=== PATIENT | male | born 2005 | race Hispanic/Latino ===

== ENCOUNTER 2023-05-23 12:07 | Emergency (ER) | payer SELFPAY ==
[2023-05-23] MEDS ORDERED: dexAMETHasone 10 MG/ML VIAL ONE (12:51)
[2023-05-23] MEDS ORDERED: HYDROCODONE/APAP 5/325 MG TAB ONE (12:51)
[2023-05-23] MEDS ORDERED: PEN G BENZ LA 1.2MU/2ML SYRINGE IM ONE (12:52)
[2023-05-23] MEDS ORDERED: ONDANSETRON 4 MG (ODT) TAB ONE (12:52)
[2023-05-23] MEDS ORDERED: IBUPROFEN 200 MG TAB PO ONE (12:52)
--- NOTE | 2023-05-23 13:46 | ER ---
Nurse's Notes [facility] Name: Ruben Duarte Age: 17 yrs Sex: Male : 2005 Arrival Date: 05/23/2023 Time: 12:07 Bed 10 Private MD: Diagnosis: Fever, unspecified;Acute laryngopharyngitis;Acute upper respiratory infection, unspecified Presentation: 05/23 12:19 Chief complaint: Parent and/or Guardian states: sore throat onset yesterday and today cm10 got worse. Coronavirus screen: Client denies travel out of the [place] in the last 14 days. Ebola Screen: Patient denies travel to an Ebola-affected area in the 21 days before illness onset. No symptoms or risks identified at this time. Initial Sepsis Screen: Does the patient meet any 2 criteria? No. Patient's initial sepsis screen is negative. Does the patient have a suspected source of infection? No. Patient's initial sepsis screen is negative. Risk Assessment: Do you want to hurt yourself or someone else? Patient reports no desire to harm self or others. Onset of symptoms was May 23, 2023. 12:19 Method Of Arrival: Ambulatory cm10 12:19 Acuity: GERALD 3 cm10 Triage Assessment: 13:00 General: Appears in no apparent distress. Behavior is calm, cooperative. iw Historical: - Allergies: 12:21 No Known Allergies; cm10 - Home Meds: 12:21 None [Active]; cm10 - PMHx: 12:21 Asthma; cm10 - PSHx: 12:21 None; cm10 - Immunization history:: Adult Immunizations up to date. - Social history:: Smoking status: Patient denies any tobacco usage or history of. - Family history:: not pertinent. Screenin:08 [facility] ED Fall Risk Assessment (Adult) Score/Fall Risk Level 0 - 2 = Low Risk. Abuse iw screen: Denies threats or abuse. Denies injuries from another. Nutritional screening: No deficits noted. Tuberculosis screening: No symptoms or risk factors identified. Assessment: 13:00 General: Appears in no apparent distress. Behavior is calm, cooperative. Pain: iw Complains of pain in throat. Neuro: Level of Consciousness is awake, alert, obeys commands, Oriented to person, place, time, situation, Moves all extremities. Full function. Cardiovascular: Patient's skin is warm and dry. Respiratory: Airway is patent Respiratory effort is even, unlabored, Breath sounds are clear bilaterally. EENT: Throat is reddened bilaterally. Vital Signs: 12:19 BP 135 / 87; Pulse 117; Resp 18; Temp 100.3(O); Pulse Ox 98% ; Weight 59.2 kg; Pain cm10 5/10; 12:19 Pain Scale: Adult cm10 ED Course: 12:09 Patient arrived in ED. mg5 12:11 Uriah Bonilla MD is Attending Physician. cp3 12:21 Triage completed. cm10 12:21 Arm band placed on Patient placed in waiting room. cm10 12:24 Flu Sent. cm10 12:24 Strep Sent. cm10 12:37 Stephy Purcell, RN is Primary Nurse. iw 13:45 Abhijit Lowery MD is Referral Physician. cp3 Administered Medications: 12:53 Drug: Dexamethasone IM 10 mg Route: IM; Site: right ventrogluteal; mb9 13:30 Follow up: Response: No adverse reaction iw 12:53 Drug: HYDROcodone-acetaminophen PO 5 mg-325 mg 1 tabs Route: PO; mb9 13:30 Follow up: Response: No adverse reaction iw 12:53 Drug: Ibuprofen PO 600 mg Route: PO; mb9 13:30 Follow up: Response: No adverse reaction iw 12:53 Drug: Ondansetron PO 4 mg Route: PO; mb9 13:30 Follow up: Response: No adverse reaction iw 12:53 Drug: penicillin G Benzathine IM 1.2 million units Route: IM; Site: right ventrogluteal;mb9 13:30 Follow up: Response: No adverse reaction iw Outcome: 13:46 Discharge ordered by . cp3 14:08 Discharged to home ambulatory, with family. iw 14:08 Condition: good 14:08 Discharge instructions given to patient, family. 14:08 Instructed on discharge instructions, follow up and referral plans. medication usage, Demonstrated understanding of instructions, follow-up care, medications, Prescriptions given X 3. 14:09 Patient left the ED. mb9 Signatures: Uriah Bonilla MD MD cp3 Stephy Purcell, RN GRETTA iw Mita Caceres RN RN mb9 Bernadine Campbell RN RN 10 Rocha, Quin mg5
--- NOTE | 2023-05-23 13:46 | EDPHYS ---
Physician Documentation [facility] Name: Ruben Duarte Age: 17 yrs Sex: Male : 2005 Arrival Date: 05/23/2023 Time: 12:07 Bed 10 Private MD: ED Physician Uriah Bonilla HPI: 05/23 12:54 Patient is a 88-year-old male with a history of asthma who presents to the ED secondary cp3 to throat pain and redness that started roughly 2 days ago. The patient's mother endorses that he has not been eating or drinking very well over the last 2 days and endorsed more pain. The patient endorses that he does not have difficulty swallowing just pain with swallowing and feels feverish without objectively taking temperature. The patient endorses he also has generalized bodyaches, fatigue, generalized weakness. Patient versus the pain as 5 out of 10 throat pain. Patient denies shortness of breath or chest pain. Historical: - Allergies: 12:21 No Known Allergies; cm10 - Home Meds: 12:21 None [Active]; cm10 - PMHx: 12:21 Asthma; cm10 - PSHx: 12:21 None; cm10 - Immunization history:: Adult Immunizations up to date. - Social history:: Smoking status: Patient denies any tobacco usage or history of. - Family history:: not pertinent. ROS: 12:54 Neck: Negative for injury, pain, and swelling, Cardiovascular: Negative for chest pain, cp3 palpitations, and edema, Respiratory: Negative for shortness of breath, cough, wheezing, and pleuritic chest pain, Abdomen/GI: Negative for abdominal pain, nausea, vomiting, diarrhea, and constipation, Back: Negative for injury and pain, Skin: Negative for injury, rash, and discoloration. 12:54 Constitutional: Positive for body aches, chills, fatigue, fever, poor PO intake. 12:54 ENT: Positive for sore throat, Pain with swallowing. Exam: 12:54 Neck: Trachea midline, no thyromegaly or masses palpated, and no cervical cp3 lymphadenopathy. Supple, full range of motion without nuchal rigidity, or vertebral point tenderness. No Meningismus. Chest/axilla: Normal chest wall appearance and motion. Nontender with no deformity. No lesions are appreciated. Cardiovascular: Regular rate and rhythm with a normal S1 and S2. No gallops, murmurs, or rubs. Normal PMI, no JVD. No pulse deficits. Respiratory: Lungs have equal breath sounds bilaterally, clear to auscultation and percussion. No rales, rhonchi or wheezes noted. No increased work of breathing, no retractions or nasal flaring. Abdomen/GI: Soft, non-tender, with normal bowel sounds. No distension or tympany. No guarding or rebound. No evidence of tenderness throughout. Male : Normal genitalia with no discharge or lesions. Skin: Warm, dry with normal turgor. Normal color with no rashes, no lesions, and no evidence of cellulitis. MS/ Extremity: Pulses equal, no cyanosis. Neurovascular intact. Full, normal range of motion. Neuro: Awake and alert, GCS 15, oriented to person, place, time, and situation. Cranial nerves II-XII grossly intact. Motor strength 5/5 in all extremities. Sensory grossly intact. Cerebellar exam normal. Normal gait. Psych: Awake, alert, with orientation to person, place and time. Behavior, mood, and affect are within normal limits. 12:54 Constitutional: The patient appears in no acute distress, alert, awake, non-diaphoretic, non-toxic, well developed, febrile. 12:54 ENT: Mouth: is normal, Posterior pharynx: Airway: normal, Tonsils: with erythema, Uvula: normal, midline, erythema, swelling, is not appreciated, erythema, that is moderate, exudate, is not appreciated, peritonsillar mass, is not appreciated, pooling of secretions, is not appreciated. Vital Signs: 12:19 BP 135 / 87; Pulse 117; Resp 18; Temp 100.3(O); Pulse Ox 98% ; Weight 59.2 kg; Pain cm10 5/10; 12:19 Pain Scale: Adult cm10 MDM: 12:44 Patient medically screened. cp3 12:54 Differential diagnosis: milagro-rios virus, mononucleosis, peritonsillar abscess cp3 pharyngitis, tonsillitis, upper respiratory infection, viral syndrome Peritonsillar abscess unlikely, tonsils are midline no asymmetrical swelling patient was swallowing without difficulty no potato voice or voice change. Data reviewed: vital signs, nurses notes, lab test result(s). 13:52 Consideration of Admission/Observation Escalation of care including cp3 admission/observation considered. I considered the following discharge prescriptions or medication management in the emergency department Medications were administered in the Emergency Department. See MAR. Historians other than the Patient: Parent: PATIENT'S MOTHER- WHO ENDORSES PAIN AND FEVER. Response to treatment: the patient's symptoms have mildly improved after treatment. ED course: Results reviewed with patient and mother patient stable for outpatient follow-up with prescription for Augmentin, prednisone, ibuprofen. 05/23 12:21 Order name: Flu; Complete Time: 13:20 cp3 05/23 13:52 Interpretation: FLUA <p>FLU A ----- NEGATIVE (could be below detectable limits, suggest cp3 culture)</p>; FLUB <p>FLU B ----- NEGATIVE (could be below detectable levels, suggest culture)</p>. 05/23 12:21 Order name: Strep 3 05/23 13:52 Interpretation: GP A STREP SC <p> GROUP A STREP SCREEN-- NEGATIVE</p>. [facility] 05/23 12:46 Order name: Throat Culture EDWA 05/23 12:21 Order name: Droplet/Contact Precautions; Complete Time: 12:24 cp3 05/23 12:21 Order name: Labs collected and sent; Complete Time: 12:24 cp3 05/23 12:21 Order name: O2 Per Protocol; Complete Time: 12:24 cp3 Administered Medications: 12:53 Drug: Dexamethasone IM 10 mg Route: IM; Site: right ventrogluteal; mb9 13:30 Follow up: Response: No adverse reaction iw 12:53 Drug: HYDROcodone-acetaminophen PO 5 mg-325 mg 1 tabs Route: PO; mb9 13:30 Follow up: Response: No adverse reaction iw 12:53 Drug: Ibuprofen PO 600 mg Route: PO; mb9 13:30 Follow up: Response: No adverse reaction iw 12:53 Drug: Ondansetron PO 4 mg Route: PO; mb9 13:30 Follow up: Response: No adverse reaction iw 12:53 Drug: penicillin G Benzathine IM 1.2 million units Route: IM; Site: right ventrogluteal;mb9 13:30 Follow up: Response: No adverse reaction iw Disposition Summary: 05/23/23 13:46 Discharge Ordered Location: Home cp3 Problem: new cp3 Symptoms: have improved cp3 Condition: Stable cp3 Diagnosis - Fever, unspecified cp3 - Acute laryngopharyngitis cp3 - Acute upper respiratory infection, unspecified cp3 Followup: cp3 - With: Abhijit Lowery MD - When: - Reason: If symptoms return Discharge Instructions: - Discharge Summary Sheet cp3 - Fever, Adult cp3 - Upper Respiratory Infection, Adult cp3 - Sore Throat, [id number] cp3 Forms: - Medication Reconciliation Form cp3 - Thank You Letter cp3 - Antibiotic Education cp3 - Prescription Opioid Use cp3 - Patient Portal Instructions cp3 Prescriptions: - Augmentin 500-125 mg Oral Tablet - take 1 tablet by ORAL route every 8 hours for 10 days; 30 tablet; Refills: 0, cp3 Product Selection Permitted - Ibuprofen 600 mg Oral Tablet - take 1 tablet by ORAL route every 6 hours As needed take with food; 30 tablet; cp3 Refills: 0, Product Selection Permitted - Prednisone 20 mg Oral Tablet - take 1 tablet by ORAL route once daily for 5 days; 5 tablet; Refills: 0, cp3 Product Selection Permitted Signatures: Dispatcher [employer] Uriah Do MD MD cp3 Mita Caceres RN RN mb9 Bernadine Campbell RN RN cm10 Stephy Purcell RN iw Corrections: (The following items were deleted from the chart) 13:52 13:52 FLUA <p>FLU A ----- NEGATIVE (could be below detectable limits, suggest cp3 culture)</p>. cp3
[2023-05-23 14:14] VITALS: BP 135/87; TEMP 100.3; O2SAT 98
== END 2023-05-23 14:09 | disposition home or self-care (01) ==
LOC: ER 12:07
DX: J06.0 Acute laryngopharyngitis (principal); J06.9 Acute upper respiratory infection, unspecified
CPT/HCPCS: 87070; 87081; 87804; J0561; J1100; Q0162